=== PATIENT | male | born 1985 | race Caucasian/White ===

== ENCOUNTER 2019-07-16 23:04 | Emergency (ER) | payer OTHER, MEDICAID, SELFPAY ==
--- NOTE | ~2019-07-16 | CT_ITS ---
EXAMINATION: CT abdomen pelvis w con DATE: 07/17/2019 00:36 INDICATION: Abdominal pain and vomiting. COVID-19 TECHNIQUE: Computed tomography (CT) of the abdomen and pelvis was performed with 100 mL Omnipaque-350 intravenous contrast. Automated exposure control and iterative reconstruction technique were employe d. The dose-length product was 1546.48 mGy-cm. COMPARISON: None FINDINGS: Respiratory motion in the lung bases. Mild patchy groundglass opacities in the right middle lobe. Hea rt size is normal. No pericardial or pleural effusion. Liver, gallbladder, spleen, pancreas, bilatera l adrenal glands and kidneys are normal. Bowels including the appendix are normal. Bladder is normal. Small fat-containing right inguinal hernia. There is diffuse muscular atrophy consistent with provid ed history of muscular dystrophy. No free intraperitoneal gas or fluid. No pathologically enlarged ab dominal or pelvic lymphadenopathy. Mild scattered degenerative skeletal changes. IMPRESSION: 1. Mild patchy groundglass opacities in the right middle lobe consistent with pneumonia. 2. No acute intra-abdominal/pelvic process. Reviewed, dictated and finalized at location A. IMPRESSION: 1. Mild patchy groundglass opacities in the right middle lobe consistent with p neumonia. 2. No acute intra-abdominal/pelvic process.
[2019-07-16 23:00] VITALS: BP 134/84; PULSE 88; RESP 18; TEMP 36.8; O2SAT 96
--- NOTE | 2019-07-16 23:04 | ED.ABDPAIN ---
HPI - Abdominal Pain General Chief Complaint: Abdominal Pain Stated Complaint: covid +/abd pain Time Seen by Provider: 07/16/19 23:04 Source: patient, family and EMS Mode of arrival: EMS Limitations: physical limitation (Muscular dystrophy) History of Present Illness HPI narrative: Patient is a 34-year-old male with a history of muscular dystrophy and a recent positive COVID test who presents for evaluation of abdominal pain. She reports aching abdominal pain over the center of his abdomen over the last 48 hours. Patient had one episode of foamy emesis yesterday, no emesis today was able to tolerate oral intake. No fever, chills, cough or shortness of breath. No known COVID exposures, patient lives with his mom and sister, both of whom have had negative test. Patient has had some loose stools. No fever. No history of abdominal surgeries. No distention. Patient also reports mild headache. No visual changes, thunderclap sensation or numbness or weakness. Patient has been taking Tylenol with minimal improvement in his symptoms. Related Data Allergies Allergy/AdvReac Type Severity Reaction Status Date / Time No Known Allergies Allergy Unknown Verified 07/16/19 23:22 Review of Systems Review of Systems: Narrative: CONSTITUTIONAL: Denies fever, chills, or sweats. ENT: Denies rhinorrhea, congestion, sore throat, or otalgia. CARDIOVASCULAR: Denies chest pain RESPIRATORY: Denies cough or dyspnea. GASTROINTESTINAL: Reports abdominal pain, vomiting yesterday, loose stools today GENITOURINARY: Denies dysuria or hematuria. SKIN: Denies rash or itching. MUSCULOSKELETAL: Denies back pain, joint pain, or myalgia. NEUROLOGIC: Reports mild headache, denies numbness or weakness [facility] Past Medical History Medical History (Updated 07/17/19 @ 01:25 by Adrianne Eagle MD) Acid reflux Developmental delay, moderate Hypertension Multiple sclerosis Muscular dystrophy Seizure disorder Surgical History Surgical History (Updated 07/16/19 @ 23:17 by Adrianne Eagle MD) H/O arthroscopy of left knee Social History Social History Smoking status: Never smoker Alcohol intake: never Gender identity (if verbalized by the patient): Male Exam Narrative: Exam Narrative: GENERAL: Awake, alert, conversant, mild developmental delay HEAD: Normocephalic, atraumatic. EYES: PERRLA and EOMI. ENT: Nares clear, no rhinorrhea or epistaxis. Mucous membranes moist. NECK: Supple. CHEST: No respiratory distress, breathing even and non labored HEART: Regular rate, sinus rhythm ABDOMEN:Non distended, mild periumbilical tenderness on exam, no rebound, no rigidity or guarding EXTREMITIES: Atrophy of bilateral lower extremities, braces present on these. No edema. SKIN: Warm, dry, no rash. NEURO:No focal deficits. Alert and oriented x3 Course Vital Signs Vital signs: Vital Signs Temperature 36.8 C 07/16/19 23:00 Pulse Rate 88 07/16/19 23:00 Respiratory Rate 18 07/16/19 23:00 Blood Pressure 134/84 07/16/19 23:00 Pulse Oximetry 96 07/16/19 23:00 Temperature 36.8 C 07/16/19 23:00 Pulse Rate 95 07/17/19 02:39 Respiratory Rate 22 H 07/17/19 02:39 Blood Pressure 124/87 07/17/19 02:39 Pulse Oximetry 100 07/17/19 02:39 MDM - Abdominal Pain MDM Narrative Medical decision making narrative: Patient presented to the emergency department for evaluation of abdominal pain in the setting of known COVID infection. The time of initial assessment ABCs are intact and vital signs are stable. Physical exam is notable for mild abdominal tenderness without peritoneal signs have access obtained labs are drawn. Patient was given IV fluids, antiemetic and pain medication. Laboratory results are reassuring. No severe leukocytosis or lymphopenia. No electrolyte abnormalities. CT scan shows no evidence of obstruction, diverticulitis, no severe COVID type features on chest x-ray.
[2019-07-16] MEDS: SODIUM CHLORIDE 0.9% IV 1,000 ML 999 ML IV CONT (23:40)
[2019-07-16] MEDS: ONDANSETRON INJ 4 MG/2 ML VIAL IV PUSH (23:40)
[2019-07-16] MEDS: FAMOTIDINE 20 MG/2 ML VIAL IV PUSH (23:42)
[2019-07-16] MEDS: DICYCLOMINE HCL INJ 20 MG/2 ML VIAL IM (23:45)
[2019-07-16 23:50] LABS: Basophils Percent Auto 0.2 % (0.2-1.2); Eosinophils Percent Auto 0.3 % (0-4.4); Hematocrit 43.8 % (42.0-52.0); Hemoglobin 14.9 g/dL (14.0-18.0); Immature Granulocyte Absolute 0.02 K/mm3 (0.00-0.031); Immature Granulocyte Percent A 0.3 % (0-0.5); Lymphocytes Absolute Auto 2.08 K/mm3 (0.9-3.2); Lymphocytes Percent Auto 34.2 % (18.3-44.2); Mean Corpuscular Hemoglobin 29.9 pg (26-34); Mean Platelet Volume 10.2 fl (7.4-10.4); Monocytes Absolute Auto 0.4 K/mm3 (0.1-0.6); Monocytes Percent Auto 7.2 % (2.6-8.5); Neutrophils Absolute Auto 3.5 K/mm3 (1.3-6.7); Neutrophils Percent Auto 57.8 % (45.5-73.1); Platelet Count Result 162 k/mm3 (150-375); Red Blood Count 4.98 M/mm3 (4.6-6.20); Red Cell Distribution Width 12.3 % (11.5-14.5); White Blood Count 6.1 K/mm3 (4.5-10.0)
[2019-07-17 00:03] LABS: Alanine Aminotransferase 43 U/L (4-50); Albumin Level 4.2 g/dL (3.5-5.1); Alkaline Phosphatase 92 U/L (38-126); Aspartate Amino Transferase 37 U/L (17-59); Bilirubin,Total 0.1 mg/dL (0.2-1.3); Blood Urea Nitrogen 12 mg/dL (9-20); Calcium 8.6 mg/dL (8.4-10.2); Carbon Dioxide 23 mmol/L (22-30); Chloride 108 mmol/L (98-107); Estimated CRCL calculation 205 ml/min; Estimated Glomerular Filt Rate > 60; Glucose 100 mg/dL (75-110); Lipase 51 U/L (23-300); Potassium 3.9 mmol/L (3.4-5.0); Sodium 139 mmol/L (137-145)
[2019-07-17 01:00] VITALS: BP 120/65; PULSE 91
[2019-07-17] MEDS: FAMOTIDINE 20 MG/2 ML VIAL IV PUSH (01:03)
[2019-07-17] MEDS: methylPREDNISolone SOD SUCC 125 MG VIAL IV PUSH (01:04)
[2019-07-17] MEDS: EPINEPHrine HCL INJ 1 MG/ML AMPUL 0.3 MG IM (01:05)
[2019-07-17 01:30] VITALS: BP 116/77; PULSE 98; RESP 22; O2SAT 94
[2019-07-17 01:48] LABS: Add Urine Microscopic? NO; Appearance Urine Clear (Clear); Bacteria Urine Trace /hpf; Bilirubin Urine Negative (Negative); Blood Urine Negative (Negative); Color Urine Colorless (Yellow); Glucose Urine UA Negative (Negative); Ketones Urine Negative (Negative); Leukocyte Esterase Ur Negative LEU/UL (Negative); Nitrate Urine Negative (Negative); Protein Urine Negative (Negative); Squamous Epithelial Cell Urine Rare /hpf (Few); Urobilinogen Urine Negative mg/dL (<2.0)
[2019-07-17 01:49] LABS: Specific Grav Ur 1.045 (1.001-1.035)
[2019-07-17 01:50] VITALS: BP 107/69; PULSE 98; RESP 16; O2SAT 95
[2019-07-17 02:20] VITALS: BP 100/66; PULSE 94; RESP 22
[2019-07-17] MEDS: SODIUM CHLORIDE 0.9% IV 1,000 ML 999 ML IV CONT (02:38)
[2019-07-17 02:39] VITALS: BP 124/87; PULSE 95; RESP 22; O2SAT 100
== END 2019-07-17 02:55 | disposition home or self-care (01) ==
PROVIDERS: Emergency Provider Emergency Medicine; PCP Family Medicine Adolescent Medicine
DX: R10.84 Generalized abdominal pain (principal); U07.1 COVID-19; G35 Multiple sclerosis; I10 Essential (primary) hypertension; G71.00 Muscular dystrophy, unspecified; G40.909 Epilepsy, unspecified, not intractable, without status epilepticus
CPT/HCPCS: 36415; 74177; 80053; 81003; 83690; 85025; 96361; 96372; 96374; 96375; 96376; 99284; J0131; J0171; J0500; J1200; J2405; J2930; J7030; Q9967

== ENCOUNTER → 2020-11-10 03:01 | Outpatient (CLI) | payer OTHER, MEDICAID, SELFPAY ==
[2020-11-10 19:14] LABS: SARS-CoV-2 RNA PCR Positive
== END ==
PROVIDERS: PCP Family Medicine Adolescent Medicine; Visit Provider Family Medicine Adolescent Medicine
DX: U07.1 COVID-19 (principal)
CPT/HCPCS: C9803; U0003; U0005

== ENCOUNTER 2020-12-30 00:12 | Emergency (ER) | payer OTHER, MEDICAID, SELFPAY ==
--- NOTE | ~2020-12-30 | CT_ITS ---
EXAMINATION: CT abdomen pelvis wo con DATE: 12/30/2020 01:25 INDICATION: Right lower quadrant abdominal pain. TECHNIQUE: Computed tomography (CT) of the abdomen and pelvis was performed without intravenous contr ast. Automated exposure control and iterative reconstruction technique were employed. The dose-length product was 1490.59 mGy-cm. COMPARISON: CT abdomen and pelvis 07/17/2019 FINDINGS: The visualized portions of the lung bases demonstrate minimal atelectasis. No pleural effus ion. Cardiomegaly is noted. No pericardial effusion. There is diffuse hepatic steatosis. The gallblad kadie is normal. The spleen, pancreas, adrenal glands, and kidneys are normal. There is no urolithiasis . The prostate is mildly enlarged. There are bilateral inguinal hernias containing fat. There are no dilated loops of bowel. The appendix is not visualized. There are no pathologically enlarged lymph no helen. There is no free intraperitoneal fluid. There is fatty atrophy of much of the musculature. There is mild thoracolumbar spondylosis. IMPRESSION: 1. Right inguinal hernia containing fat. 2. Diffuse hepatic steatosis. Reviewed, dictated and finalized at location B. SERVICER
[2020-12-30 00:19] VITALS: BP 131/88; PULSE 111; RESP 28; TEMP 36.9; O2SAT 96
--- NOTE | 2020-12-30 01:00 | ED.ABDPAIN ---
HPI - Abdominal Pain General Chief Complaint: Abdominal Pain Stated Complaint: abd pain rt of belly button Time Seen by Provider: 12/30/20 00:52 Source: patient and family Mode of arrival: ambulatory Limitations: no limitations History of Present Illness HPI narrative: The patient is a 35 yo male with a history of muscular dystrophy, seizure disorder, presenting for evaluation of abdominal pain. Pain is located in the right lower quadrant and middle abdomen. Pain started this evening after work. Pain is aching and throbbing in nature. No radiation to the back or flank. He denies penile or testicular pain. No swelling. No penile discharge. Patient denies fever, chills, nausea or vomiting. No urinary symptoms. Denies diarrhea or constipation. Pt without history of abdominal surgeries. Pt does take tegretol for seizures, has been compliant with that, no breakthrough seizures in 10 years. Denies recent food indiscretions. Mom at bedside states that she has been unable to lift patient due to a recent surgery she had, so he has been doing more moving and lifting than typical for him. Related Data Home Medications Medication Instructions Recorded Confirmed carbamazepine 200 mg 200 mg PO Q12H 06/16/20 06/16/20 capsule,extended release [id number] Allergies Allergy/AdvReac Type Severity Reaction Status Date / Time iohexol AdvReac Difficulty Verified 12/30/20 00:27 [From contrast - CT, X-RAY] Breathing Review of Systems Review of Systems: CONSTITUTIONAL: Denies fever, chills, or sweats. EYES: Denies visual changes, redness, or discharge. ENT: Denies rhinorrhea, congestion, sore throat, or otalgia. CARDIOVASCULAR: Denies chest pain, palpitations, or edema. RESPIRATORY: Denies cough or dyspnea. GASTROINTESTINAL: Reports abdominal pain without nausea or vomiting, no diarrhea GENITOURINARY: Denies dysuria or hematuria. SKIN: Denies rash or itching. MUSCULOSKELETAL: Denies back pain, joint pain, or myalgia. NEUROLOGIC: Denies headache, numbness, or weakness. [facility] Past Medical History Medical History Acid reflux Developmental delay, moderate Hypertension Multiple sclerosis Muscular dystrophy Seizure disorder Surgical History Surgical History H/O arthroscopy of left knee Social History Social History Smoking status: Never smoker Alcohol intake: never Gender identity (if verbalized by the patient): Male Exam Narrative: GENERAL: Awake, alert, conversant HEAD: Normocephalic, atraumatic. EYES: PERRLA and EOMI. ENT: Nares clear, no rhinorrhea or epistaxis. Mucous membranes moist. NECK: Supple. CHEST: No respiratory distress, breathing even and non labored HEART: Tachycardic rate, sinus rhythm ABDOMEN:Non distended, tender in the RLQ, without guarding, no rebound EXTREMITIES: Normal range of motion. No edema. Braces bilateral lower extremities. SKIN: Warm, dry, no rash. NEURO:No focal deficits. Alert and oriented x3 Course Vital Signs Vital signs: Vital Signs Temperature 36.9 C 12/30/20 00:19 Pulse Rate 111 H 12/30/20 00:19 Respiratory Rate 28 H 12/30/20 00:19 Blood Pressure 131/88 12/30/20 00:19 Pulse Oximetry 96 12/30/20 00:19 Temperature 36.9 C 12/30/20 00:19 Pulse Rate 93 12/30/20 02:39 Respiratory Rate 17 12/30/20 02:39 Blood Pressure 104/62 12/30/20 02:39 Pulse Oximetry 97 12/30/20 02:39 MDM - Abdominal Pain MDM Narrative Medical decision making narrative: Patient presenting for evaluation of abdominal pain. At the time of assessment, ABCs are intact and patient is mildly tachycardic, mildly tachypneic. He is afebrile. Patient does have tenderness in the right lower quadrant, right middle quadrant. Nonrigid, no rebound. Lab and imaging evaluations are reassuring. Pt without leukocytosis, althoug
[2020-12-30] MEDS: MORPHINE SULFATE (*CRX) 4 MG/ML INJ IV PUSH (01:56)
[2020-12-30] MEDS: SODIUM CHLORIDE 0.9% IV 1,000 ML 999 ML IV CONT (01:56)
[2020-12-30] MEDS: ONDANSETRON INJ 4 MG/2 ML VIAL IV PUSH (01:56)
[2020-12-30 02:06] LABS: Basophils Percent Auto 0.1 % (0.2-1.2); Hematocrit 45.6 % (42.0-52.0); Hemoglobin 15.6 g/dL (14.0-18.0); Immature Granulocyte Absolute 0.03 K/mm3 (0.00-0.031); Immature Granulocyte Percent A 0.4 % (0-0.5); Lymphocytes Absolute Auto 1.03 K/mm3 (0.9-3.2); Lymphocytes Percent Auto 13.8 % (18.3-44.2); Mean Corpuscular HGB Conc 34.2 g/dl (32-36); Mean Corpuscular Hemoglobin 30.1 pg (26-34); Mean Platelet Volume 9.6 fl (7.4-10.4); Monocytes Absolute Auto 0.5 K/mm3 (0.1-0.6); Monocytes Percent Auto 6.9 % (2.6-8.5); Neutrophils Absolute Auto 5.9 K/mm3 (1.3-6.7); Neutrophils Percent Auto 78.8 % (45.5-73.1); Platelet Count Result 180 k/mm3 (150-375); Red Blood Count 5.18 M/mm3 (4.6-6.20); Red Cell Distribution Width 11.9 % (11.5-14.5); White Blood Count 7.4 K/mm3 (4.5-10.0)
[2020-12-30 02:16] LABS: Alanine Aminotransferase 48 U/L (4-50); Albumin Level 4.4 g/dL (3.5-5.1); Alkaline Phosphatase 93 U/L (38-126); Anion Gap 9 mmol/L (8-16); Aspartate Amino Transferase 41 U/L (17-59); Bilirubin,Total 0.6 mg/dL (0.2-1.3); Blood Urea Nitrogen 9 mg/dL (9-20); Calcium 9.4 mg/dL (8.4-10.2); Carbon Dioxide 28 mmol/L (22-30); Chloride 103 mmol/L (98-107); Estimated CRCL calculation 257 ml/min; Estimated Glomerular Filt Rate > 60; Glucose 114 mg/dL (65-110); Lipase 31 U/L (23-300); Potassium 3.8 mmol/L (3.4-5.0); Sodium 140 mmol/L (137-145)
[2020-12-30 02:39] VITALS: BP 104/62; PULSE 93; RESP 17; O2SAT 97
--- NOTE | 2020-12-30 02:45 | PC.NURSE ---
pt states he is unable to urinate and is refusing catheter at this time.
[2020-12-30 03:39] LABS: Add Urine Microscopic? NO; Appearance Urine Clear (Clear); Bilirubin Urine Negative (Negative); Blood Urine Negative (Negative); Color Urine Yellow (Yellow); Glucose Urine UA Negative (Negative); Ketones Urine Negative (Negative); Leukocyte Esterase Ur Negative LEU/UL (Negative); Nitrate Urine Negative (Negative); Protein Urine Negative (Negative); Specific Grav Ur 1.018 (1.001-1.035); Urobilinogen Urine Negative mg/dL (<2.0)
[2020-12-30 04:12] VITALS: BP 112/74; PULSE 94; RESP 18; O2SAT 96
== END 2020-12-30 04:17 | disposition home or self-care (01) ==
PROVIDERS: Emergency Provider Emergency Medicine; PCP Family Medicine Adolescent Medicine
DX: R10.31 Right lower quadrant pain (principal); G71.00 Muscular dystrophy, unspecified; G40.909 Epilepsy, unspecified, not intractable, without status epilepticus; I10 Essential (primary) hypertension; G35 Multiple sclerosis; K21.9 Gastro-esophageal reflux disease without esophagitis
CPT/HCPCS: 36415; 74176; 80053; 81003; 83690; 85025; 96361; 96365; 96375; 99284; J0131; J2270; J2405; J7030

== ENCOUNTER → 2021-03-09 16:01 | Outpatient (CLI) | payer OTHER, MEDICAID, SELFPAY ==
--- NOTE | ~2021-03-09 | XR_ITS ---
XR knee RT 2V DATE: 03/09/2021 16:24 INDICATION: Right knee pain TECHNIQUE: Standing AP and lateral views COMPARISON: None FINDINGS: No fracture or dislocation or joint effusion. No periosteal reaction or bone destruction. J oint spaces appear preserved. No radiopaque intra-articular loose body or chondral calcinosis. IMPRESSION: No significant abnormality Reviewed, dictated and finalized at location B. CARDIOGRAPH TECHNICIAN IMPRESSION: No significant abnormality
== END ==
PROVIDERS: PCP Physician Assistant; Visit Provider Physician Assistant
DX: M25.561 Pain in right knee (principal)
CPT/HCPCS: 73560

== ENCOUNTER 2021-10-07 01:17 | Emergency (ER) | payer OTHER, MEDICAID, SELFPAY ==
[2021-10-07] VITALS (27 sets, daily range): BP systolic 107–145; BP diastolic 78–102; PULSE 71–117; RESP 14–24; TEMP 37; O2SAT 93–100
--- NOTE | ~2021-10-07 | XR_ITS ---
EXAMINATION: XR chest 2V DATE: 10/07/2021 01:53 INDICATION: Chest pain. TECHNIQUE: Frontal and lateral views of the chest were obtained. COMPARISON: Chest 2 views 11/20/2018 FINDINGS: There is mild elevation of right hemidiaphragm without change. No pneumonia, pleural effusi on, or pneumothorax. The heart size is normal. IMPRESSION: 1. No acute cardiopulmonary disease. Reviewed, dictated and finalized at location A.
--- NOTE | 2021-10-07 01:17 | ECG_ITS ---
Measurements Intervals [place] Rate: 84 P: 118 WI: 213 QRS: 233 QRSD: 176 T: 98 QT: 400 QTc: 474 Interpretive Statements SINUS RHYTHM WITH FIRST DEGREE AV BLOCK ARM LEADS REVERSED LEFT BUNDLE BRANCH BLOCK BASELINE ARTIFACT-I, II, AVR, AVL ABNORMAL ECG COMPARED TO ECG 11/20/2018 18:09:21 NO SIGNIFICANT CHANGES Electronically Signed On 10-07-2021 8:00:29 CDT by Rashad Li D.O.
[2021-10-07 01:30] LABS: Basophils Percent Auto 0.4 % (0.2-1.2); Eosinophils Percent Auto 0.4 % (0-4.4); Hematocrit 46.4 % (42.0-52.0); Hemoglobin 15.5 g/dL (14.0-18.0); Immature Granulocyte Absolute 0.02 K/mm3 (0.00-0.031); Immature Granulocyte Percent A 0.3 % (0-0.5); Lymphocytes Absolute Auto 2.35 K/mm3 (0.9-3.2); Lymphocytes Percent Auto 30.9 % (18.3-44.2); Mean Corpuscular HGB Conc 33.4 g/dl (32-36); Mean Corpuscular Hemoglobin 29.3 pg (26-34); Mean Corpuscular Volume 87.7 fl (80-100); Monocytes Absolute Auto 0.5 K/mm3 (0.1-0.6); Monocytes Percent Auto 6.4 % (2.6-8.5); Neutrophils Absolute Auto 4.7 K/mm3 (1.3-6.7); Neutrophils Percent Auto 61.6 % (45.5-73.1); Platelet Count Result 180 k/mm3 (150-375); Red Blood Count 5.29 M/mm3 (4.6-6.20); Red Cell Distribution Width 12.1 % (11.5-14.5); White Blood Count 7.6 K/mm3 (4.5-10.0)
[2021-10-07 01:42] LABS: Alanine Aminotransferase 29 U/L (6-50); Albumin Level 4.4 g/dL (3.5-5.1); Alkaline Phosphatase 93 U/L (38-126); Anion Gap 6 mmol/L (8-16); Aspartate Amino Transferase 31 U/L (17-59); Bilirubin,Total 0.4 mg/dL (0.2-1.3); Blood Urea Nitrogen 18 mg/dL (9-20); Calcium 8.8 mg/dL (8.4-10.2); Carbon Dioxide 25 mmol/L (22-30); Chloride 102 mmol/L (98-107); Estimated CRCL calculation 266 ml/min; Estimated Glomerular Filt Rate > 60; Glucose 105 mg/dL (65-110); INR 1.1; Lipase 43 U/L (23-300); Prothrombin Time 13.6 Seconds (11.1-14.7); Sodium 133 mmol/L (137-145)
[2021-10-07 01:43] LABS: Partial Thromboplastin Time 31.8 SECONDS (22.3-36.8)
[2021-10-07 01:52] LABS: D Dimer 0.35 ug/mL (<0.48)
[2021-10-07 01:54] LABS: Troponin I 0.027 ng/mL (0.000-0.034)
[2021-10-07] MEDS: MORPHINE SULFATE (*CRX) 4 MG/ML INJ IV PUSH (01:57)
[2021-10-07] MEDS: SODIUM CHLORIDE 0.9% IV 100 ML 500 ML (02:02)
--- NOTE | 2021-10-07 02:30 | ED.CHESTPAIN ---
HPI - Chest Pain General Chief Complaint: Chest Pain Stated Complaint: Code Stemi Time Seen by Provider: 10/07/21 01:17 History of Present Illness HPI narrative: Patient is a 36-year-old male with history of developmental delay muscular dystrophy who presents ER with chest pain. Occurred while getting in bed. Sharp and left-sided. Nonradiating. No difficulty breathing. Denies nausea or vomiting or shortness of breath. Has not had complaints like this before. EMS reports to where they go out for lift assist. Patient did have a fall in the last week according to family but no known injury. Patient has a known left bundle branch block but no history of heart disease according to the mother. Related Data Home Medications Medication Instructions Recorded Confirmed metoprolol succinate 25 mg 25 mg PO DAILY 03/08/21 09/24/21 tablet,extended release 24 hr naproxen 500 mg tablet 500 mg PO BID 03/08/21 09/24/21 spironolactone 25 mg tablet 25 mg PO DAILY 03/08/21 09/24/21 Allergies Allergy/AdvReac Type Severity Reaction Status Date / Time iohexol AdvReac Difficulty Verified 10/07/21 01:29 [From contrast - CT, X-RAY] Breathing Review of Systems Review of Systems: All systems reviewed & are unremarkable except as noted in HPI and below Constitutional: Constitutional: Denies chills and Denies fever(s) ENT: Denies sore throat Cardiovascular: Cardiovascular: Reports chest pain, Denies rapid heart rate and Denies radiating jaw, neck or arm pain Respiratory: Respiratory: Denies cough, Denies dyspnea and Denies wheezing Gastrointestinal: Gastrointestinal: Denies abdominal pain, Denies nausea and Denies vomiting Musculoskeletal: Musculoskeletal: Denies back pain and Denies arthralgias [facility] Past Medical History Medical History Acid reflux Cardiomyopathy as manifestation of underlying disease secondary to muscular dystrophy Chronic headaches Congenital muscular dystrophy Developmental delay, moderate Epilepsy Frequent falls GERD (gastroesophageal reflux disease) Hepatic steatosis 07/2015 Hypertension Left bundle branch block Mild intellectual disability Multiple sclerosis Muscular dystrophy Obesity (BMI 30-39.9) Seizure disorder Surgical History Surgical History H/O arthroscopy of left knee Social History Social History (Updated 09/24/21 @ 09:47 by Gianna Fernández MA) Smoking status: Never smoker Second hand tobacco smoke exposure: No Alcohol intake: never Substance use: never Substance use type: does not use Gender identity (if verbalized by the patient): Male Sexual Orientation (if Verbalized by the Patient): Straight or Heterosexual Spiritual care concerns: No Agree to blood products: Yes Exam Narrative: GENERAL: Well-appearing, well-nourished, and in no acute distress. HEAD: Normocephalic, atraumatic. ENT: Mucous membranes moist. CHEST: Clear to auscultation. No respiratory distress. HEART: Regular rate and rhythm. Normal peripheral pulses. ABDOMEN: Soft, nontender, nondistended. EXTREMITIES: RLE lateral lower extremities in braces due to muscular dystrophy. 1+ edema SKIN: Warm, dry, no rash. NEURO: Alert and oriented x3. PSYCH: Normal mood and affect. Course Course Emergency Course: Patient resting comfortably. No pain in the chest while in the ER. Patient does not wish to stay in the hospital. He does have intellectual delay. His mom is present and is supportive of this. A second troponin was drawn and unchanged. Given the fact that he has 2 negative troponins, he has no previous history of heart disease, he has a heart score of 2, and he has a mother who is supportive of him going home patient be discharged. Vital Signs Vital signs: Vital Signs Temperature 98.6 F 10/07/21 01:20 Pulse Rate 96 10/07/21 01:20 Respiratory Rate 21 H 09
[2021-10-07 04:51] LABS: Troponin I 0.027 ng/mL (0.000-0.034)
== END 2021-10-07 05:35 | disposition home or self-care (01) ==
PROVIDERS: Emergency Provider Emergency Medicine; PCP Family Medicine Adolescent Medicine
DX: R07.9 Chest pain, unspecified (principal); G71.09 Other specified muscular dystrophies; I43 Cardiomyopathy in diseases classified elsewhere; G40.909 Epilepsy, unspecified, not intractable, without status epilepticus; I10 Essential (primary) hypertension; F81.9 Developmental disorder of scholastic skills, unspecified; G35 Multiple sclerosis; K21.9 Gastro-esophageal reflux disease without esophagitis; I44.7 Left bundle-branch block, unspecified; E66.9 Obesity, unspecified; Z68.41 Body mass index [BMI] 40.0-44.9, adult; I44.0 Atrioventricular block, first degree
CPT/HCPCS: 36415; 71046; 80053; 83690; 84484; 85025; 85380; 85610; 85730; 93005; 96361; 96374; 99284; J2270

== ENCOUNTER 2024-02-12 14:54 | Emergency (ER) | payer MEDICARE, MEDICAID, SELFPAY ==
--- NOTE | ~2024-02-12 | XR_ITS ---
EXAMINATION: XR chest 2V DATE: 02/12/2024 16:45 INDICATION: Weakness. TECHNIQUE: Frontal and lateral views of the chest were obtained. COMPARISON: Chest 2 views 10/07/2021 FINDINGS: There is no pneumonia, pleural effusion, or pneumothorax. The heart size is normal. There i s a left chest pacer with leads in right atrium, right ventricle, and coronary sinus. IMPRESSION: 1. No acute cardiopulmonary disease. Reviewed, dictated and finalized at location [facility]
[2024-02-12 15:02] VITALS: BP 142/81; PULSE 94; RESP 18; TEMP 36.5; O2SAT 98
[2024-02-12 15:13] LABS: Glucose Point of Care 115 mg/dl (65-105)
--- NOTE | 2024-02-12 15:58 | ECG_ITS ---
Test Date: 2024-02-12 16:14:12 Measurements Intervals [place] Rate: 92 P: 31 [place]: 181 QRS: -62 QRSD: 153 T: 76 QT: 409 QTc: 508 Interpretive Statements ELECTRONIC VENTRICULAR PACEMAKER No previous ECG available for comparison Electronically Signed On 02-14-2024 17:04:43 THERAPEUTIC RIDING INSTRUCTOR by Javier Ambriz M.D.
--- NOTE | 2024-02-12 15:59 | ED.WEAKNESS ---
HPI - Weakness General Chief complaint: Weakness <Manisha Cortez PA-C - Last Filed: 02/13/24 11:59> Stated complaint: WEAKNESS <Manisha Cortez PA-C - Last Filed: 02/13/24 11:59> Time Seen by Provider: 02/12/24 15:59 <Manisha Cortez PA-C - Last Filed: 02/13/24 11:59> Focused HPI: This is a 38-year-old male that presents to the emergency department for generalized weakness. Reports he was trying to use the restroom and felt like his legs were going to give out on him. He has history of muscular dystrophy. No other localizing symptoms GENERAL: Well-appearing, well-nourished, and in no acute distress. HEAD: Normocephalic, atraumatic. CHEST: Clear to auscultation. ?No respiratory distress. HEART: Regular rate and rhythm.? NEURO: ?Alert and oriented x3. Patient screened in triage and initial orders placed.? ?Additional care and disposition to be based upon?diagnostic testing and treatment. <Manisha Cortez PA-C - Last Filed: 02/13/24 11:59> History of Present Illness HPI Narrative: Patient 38-year-old gentleman who presents emergency department with chief complaint of generalized weakness. Patient reports that he feels as though his legs are going to give out on him the patient has history of muscular dystrophy reports that he lives with his mother who has had worsening health problems and the family is ultimately looking at getting at physical therapy and possible placement. The patient denies fever denies chest pain denies shortness of breath <Eb Martin MD - Last Filed: 02/12/24 22:06> Related Data Home medications: Home Medications ?Medication ?Instructions ?Recorded ?Confirmed ?Last Taken ?Type metoprolol succinate 25 mg 25 mg PO DAILY 03/08/21 06/16/22 Unknown History tablet,extended release 24 hr naproxen 500 mg tablet 500 mg PO BID 03/08/21 06/16/22 Unknown History spironolactone 25 mg tablet 25 mg PO DAILY 03/08/21 06/16/22 Unknown History <Manisha Cortez PA-C - Last Filed: 02/13/24 11:59> Allergies/Adverse reactions: Allergies Allergy/AdvReac Type Severity Reaction Status Date / Time iohexol (From contrast - CT, AdvReac Difficulty Verified 06/22/23 13:34 X-RAY) Breathing <Manisha Cortez PA-C - Last Filed: 02/13/24 11:59> Review of Systems Review of Systems: A 10 system review of systems was completed on the patient and is negative except for what is stated in the HPI. Nursing and ancillary documentation was reviewed. <Eb Maritn MD - Last Filed: 02/12/24 22:06> [facility] Past Medical History Medical History: Medical History Obesity (BMI 30-39.9) Frequent falls Cardiomyopathy as manifestation of underlying disease secondary to muscular dystrophy GERD (gastroesophageal reflux disease) Left bundle branch block Chronic headaches Epilepsy Mild intellectual disability Hepatic steatosis 07/2015 Congenital muscular dystrophy Multiple sclerosis Acid reflux Hypertension Developmental delay, moderate Seizure disorder Muscular dystrophy <Manisha Cortez PA-C - Last Filed: 02/13/24 11:59> Surgical History Surgical History: Surgical History H/O arthroscopy of left knee <Manisha Cortez PA-C - Last Filed: 02/13/24 11:59> Social History Social History: Social History Smoking status: Never smoker Second hand tobacco smoke exposure: No Alcohol intake: never Substance use: never Substance use type: does not use Lack of Transportation: No Lack of Food: Never True Current Housing: Decline to Answer Concerned About Future Housing: No Difficulty Paying Gas/Electric Bills: No Difficulty Paying for Meds: No Currently Unemployed: No Education: High School Diploma/GED Difficulty w/ Childcare or Family Care: No Living arrangements: with family Occupation/Education: unemployed Gender identity (if verbalized by the patient): Male Sexual Orientation (if Verbalized by the Patient): Straight or Heterosexual Spiritual care concerns: No Agree to blood products: Yes <Manisha Cortez PA-C - Last Filed: 02/13/24 11:59> Exam Narrative: GENERAL: Well-appearing, well-nourished, and in no acute distress. HEAD: Normocephalic, atraumatic. EYES: PERRLA and EOMI. ENT: Nares clear, no rhinorrhea or epistaxis. Mucous membranes moist. NECK: Supple. CHEST: Clear to auscultation. No respiratory distress. HEART: Regular rate and rhythm. No murmur heard. Normal peripheral pulses. ABDOMEN: Soft, nontender, nondistended, normal active bowel sounds. EXTREMITIES: Normal range of motion. No edema. SKIN: Warm, dry, no rash. NEURO: No focal deficits. Alert and oriented x3. PSYCH: Normal mood and affect. <Eb Martin MD - Last Filed: 02/12/24 22:06> Course Vital Signs Vital signs: Vital Signs Temperature 97.7 F 02/12/24 15:02 Pulse Rate 94 02/12/24 15:02 Respiratory Rate 18 02/12/24 15:02 Blood Pressure 142/81 H 02/12/24 15:02 Pulse Oximetry 98 02/12/24 15:02 Oxygen Delivery Room Air 02/12/24 15:02 Temperature 96.8 F L 02/12/24 19:52 Pulse Rate 103 H 02/12/24 22:37 Respiratory Rate 18 02/12/24 22:37 Blood Pressure 123/86 02/12/24 22:37 Pulse Oximetry 99 02/12/24 22:37 Oxygen Delivery Room Air 02/12/24 15:02 <Manisha Cortez PA-C - Last Filed: 02/13/24 11:59> Vital Signs Temperature 97.7 F 02/12/24 15:02 Pulse Rate 94 02/12/24 15:02 Respiratory Rate 18 02/12/24 15:02 Blood Pressure 142/81 H 02/12/24 15:02 Pulse Oximetry 98 02/12/24 15:02 Oxygen Delivery Room Air 02/12/24 15:02 Temperature 96.8 F L 02/12/24 19:52 Pulse Rate 103 H 02/12/24 22:37 Respiratory Rate 18 02/12/24 22:37 Blood Pressure 123/86 02/12/24 22:37 Pulse Oximetry 99 02/12/24 22:37 Oxygen Delivery Room Air 02/12/24 15:02 <Eb Martin MD - Last Filed: 02/12/24 22:06> MDM - Weakness MDM Narrative Medical decision making narrative: Differential diagnosis includes pneumonia, UTI, electrolyte abnormality, dehydration Laboratory studies were obtained on the patient showed a normal CBC with white count of 7.7 hemoglobin was 16.2 electrolytes showed a glucose of 98 renal function was normal with with a BUN of 14 and a creatinine is 0.27 urinalysis showed no evidence UTI no ketones specific gravity of 1.014 Chest x-ray showed no focal infiltrate EKG showed no acute ischemic changes It was discussed with the patient and the patient's family of admission for case management evaluation and possible placement the family after extensive discussion decided that they would attempt to 1st expedited leave follow-up with the patient's primary care provider and look at doing outpatient physical therapy or possible placement <Eb Martin MD - Last Filed: 02/12/24 22:06> Lab Data Result diagrams: 02/12/24 16:21 02/12/24 16:21 <Manisha Cortez PA-C - Last Filed: 02/13/24 11:59> Labs: Lab Results 02/12/24 02/12/24 02/12/24 Range/Units 15:11 16:21 17:57 WBC 7.7 (4.5-10.0) K/mm3 RBC 5.57 (4.6-6.20) M/mm3 Hgb 16.2 (14.0-18.0) g/dL Hct 47.0 (42.0-52.0) % MCV 84.4 (80-100) fl MCH 29.1 (26-34) pg MCHC 34.5 (32-36) g/dl RDW 12.4 (11.5-14.5) % Plt Count 170 (150-375) k/mm3 MPV 9.8 (7.4-10.4) fl Immature Gran % (Auto) 0.4 (0-0.5) % Neut % (Auto) 72.7 (45.5-73.1) % Lymph % (Auto) 19.1 (18.3-44.2) % [place] % (Auto) 7.2 (2.6-8.5) % Eos % (Auto) 0.1 (0-4.4) % Baso % (Auto) 0.5 (0.2-1.2) % Lymph # (Auto) 1.47 (0.9-3.2) K/mm3 [place] # (Auto) 0.6 (0.1-0.6) K/mm3 Eos # (Auto) 0.0 (0-0.3) K/mm3 Baso # (Auto) 0.0 (0.0-0.1) K/mm3 Abs Immat Gran (auto) 0.03 (0.00-0.031) K/mm3 Absolute Neuts (auto) 5.6 (1.3-6.7) K/mm3 Absolute Nucleated RBC 0.000 (0.0-0.012) K/mm3 Nucleated RBC % 0.0 (0.0-0.2) % Sodium 140 (137-145) mmol/L Potassium 3.6 (3.4-5.0) mmol/L Chloride 107 (98-107) mmol/L Carbon Dioxide 24 (22-30) mmol/L Anion Gap 9 (4-12) mmol/L BUN 14 (9-20) mg/dL Creatinine 0.27 L (0.7-1.3) mg/dL Estim Creat Clear Calc 366 ml/min Estimated GFR > 60 (59 - ) Glucose 98 (65-110) mg/dL POC Capillary Glucose 115 H (65-105) mg/dl Calcium 9.2 (8.4-10.2) mg/dL Magnesium 2.0 (1.6-2.3) mg/dL Total Bilirubin 0.7 (0.2-1.3) mg/dL AST 47 (17-59) U/L ALT 46 (6-50) U/L Alkaline Phosphatase 103 (38-126) U/L Total Protein 8.0 (6.3-8.2) g/dL Albumin 4.5 (3.5-5.1) g/dL Urine Color Yellow (Yellow) Urine Appearance Clear (Clear) Urine pH 6.0 (5.0-9.0) Ur Specific [place] 1.014 (1.001-1.035) Urine Protein Negative (Negative) mg/dL Urine Glucose (UA) Negative (Negative) mg/dL Urine Ketones Negative (Negative) mg/dL Ur Blood (Man) Negative (Negative) Urine Nitrate Negative (Negative) Urine Bilirubin Negative (Negative) Urine Urobilinogen 0.2 (<2.0) mg/dL Leukocyte Esterase Rfl Negative (Negative) ALLEN/UL 02/12/24 Range/Units 19:53 WBC (4.5-10.0) K/mm3 RBC (4.6-6.20) M/mm3 Hgb (14.0-18.0) g/dL Hct (42.0-52.0) % MCV (80-100) fl MCH (26-34) pg MCHC (32-36) g/dl RDW (11.5-14.5) % Plt Count (150-375) k/mm3 MPV (7.4-10.4) fl Immature Gran % (Auto) (0-0.5) % Neut % (Auto) (45.5-73.1) % Lymph % (Auto) (18.3-44.2) % [place] % (Auto) (2.6-8.5) % Eos % (Auto) (0-4.4) % Baso % (Auto) (0.2-1.2) % Lymph # (Auto) (0.9-3.2) K/mm3 [place] # (Auto) (0.1-0.6) K/mm3 Eos # (Auto) (0-0.3) K/mm3 Baso # (Auto) (0.0-0.1) K/mm3 Abs Immat Gran (auto) (0.00-0.031) K/mm3 Absolute Neuts (auto) (1.3-6.7) K/mm3 Absolute Nucleated RBC (0.0-0.012) K/mm3 Nucleated RBC % (0.0-0.2) % Sodium (137-145) mmol/L Potassium (3.4-5.0) mmol/L Chloride (98-107) mmol/L Carbon Dioxide (22-30) mmol/L Anion Gap (4-12) mmol/L BUN (9-20) mg/dL Creatinine (0.7-1.3) mg/dL Estim Creat Clear Calc ml/min Estimated GFR (59 - ) Glucose (65-110) mg/dL POC Capillary Glucose 94 (65-105) mg/dl Calcium (8.4-10.2) mg/dL Magnesium (1.6-2.3) mg/dL Total Bilirubin (0.2-1.3) mg/dL AST (17-59) U/L ALT (6-50) U/L Alkaline Phosphatase (38-126) U/L Total Protein (6.3-8.2) g/dL Albumin (3.5-5.1) g/dL Urine Color (Yellow) Urine Appearance (Clear) Urine pH (5.0-9.0) Ur Specific [place] (1.001-1.035) Urine Protein (Negative) mg/dL Urine Glucose (UA) (Negative) mg/dL Urine Ketones (Negative) mg/dL Ur Blood (Man) (Negative) Urine Nitrate (Negative) Urine Bilirubin (Negative) Urine Urobilinogen (<2.0) mg/dL Leukocyte Esterase Rfl (Negative) ALLEN/UL <Manisha Cortez PA-C - Last Filed: 02/13/24 11:59> Lab Results 02/12/24 02/12/24 02/12/24 Range/Units 15:11 16:21 17:57 WBC 7.7 (4.5-10.0) K/mm3 RBC 5.57 (4.6-6.20) M/mm3 Hgb 16.2 (14.0-18.0) g/dL Hct 47.0 (42.0-52.0) % MCV 84.4 (80-100) fl MCH 29.1 (26-34) pg MCHC 34.5 (32-36) g/dl RDW 12.4 (11.5-14.5) % Plt Count 170 (150-375) k/mm3 MPV 9.8 (7.4-10.4) fl Immature Gran % (Auto) 0.4 (0-0.5) % Neut % (Auto) 72.7 (45.5-73.1) % Lymph % (Auto) 19.1 (18.3-44.2) % [place] % (Auto) 7.2 (2.6-8.5) % Eos % (Auto) 0.1 (0-4.4) % Baso % (Auto) 0.5 (0.2-1.2) % Lymph # (Auto) 1.47 (0.9-3.2) K/mm3 [place] # (Auto) 0.6 (0.1-0.6) K/mm3 Eos # (Auto) 0.0 (0-0.3) K/mm3 Baso # (Auto) 0.0 (0.0-0.1) K/mm3 Abs Immat Gran (auto) 0.03 (0.00-0.031) K/mm3 Absolute Neuts (auto) 5.6 (1.3-6.7) K/mm3 Absolute Nucleated RBC 0.000 (0.0-0.012) K/mm3 Nucleated RBC % 0.0 (0.0-0.2) % Sodium 140 (137-145) mmol/L Potassium 3.6 (3.4-5.0) mmol/L Chloride 107 (98-107) mmol/L Carbon Dioxide 24 (22-30) mmol/L Anion Gap 9 (4-12) mmol/L BUN 14 (9-20) mg/dL Creatinine 0.27 L (0.7-1.3) mg/dL Estim Creat Clear Calc 366 ml/min Estimated GFR > 60 (59 - ) Glucose 98 (65-110) mg/dL POC Capillary Glucose 115 H (65-105) mg/dl Calcium 9.2 (8.4-10.2) mg/dL Magnesium 2.0 (1.6-2.3) mg/dL Total Bilirubin 0.7 (0.2-1.3) mg/dL AST 47 (17-59) U/L ALT 46 (6-50) U/L Alkaline Phosphatase 103 (38-126) U/L Total Protein 8.0 (6.3-8.2) g/dL Albumin 4.5 (3.5-5.1) g/dL Urine Color Yellow (Yellow) Urine Appearance Clear (Clear) Urine pH 6.0 (5.0-9.0) Ur Specific [place] 1.014 (1.001-1.035) Urine Protein Negative (Negative) mg/dL Urine Glucose (UA) Negative (Negative) mg/dL Urine Ketones Negative (Negative) mg/dL Ur Blood (Man) Negative (Negative) Urine Nitrate Negative (Negative) Urine Bilirubin Negative (Negative) Urine Urobilinogen 0.2 (<2.0) mg/dL Leukocyte Esterase Rfl Negative (Negative) ALLEN/UL 02/12/24 Range/Units 19:53 WBC (4.5-10.0) K/mm3 RBC (4.6-6.20) M/mm3 Hgb (14.0-18.0) g/dL Hct (42.0-52.0) % MCV (80-100) fl MCH (26-34) pg MCHC (32-36) g/dl RDW (11.5-14.5) % Plt Count (150-375) k/mm3 MPV (7.4-10.4) fl Immature Gran % (Auto) (0-0.5) % Neut % (Auto) (45.5-73.1) % Lymph % (Auto) (18.3-44.2) % [place] % (Auto) (2.6-8.5) % Eos % (Auto) (0-4.4) % Baso % (Auto) (0.2-1.2) % Lymph # (Auto) (0.9-3.2) K/mm3 [place] # (Auto) (0.1-0.6) K/mm3 Eos # (Auto) (0-0.3) K/mm3 Baso # (Auto) (0.0-0.1) K/mm3 Abs Immat Gran (auto) (0.00-0.031) K/mm3 Absolute Neuts (auto) (1.3-6.7) K/mm3 Absolute Nucleated RBC (0.0-0.012) K/mm3 Nucleated RBC % (0.0-0.2) % Sodium (137-145) mmol/L Potassium (3.4-5.0) mmol/L Chloride (98-107) mmol/L Carbon Dioxide (22-30) mmol/L Anion Gap (4-12) mmol/L BUN (9-20) mg/dL Creatinine (0.7-1.3) mg/dL Estim Creat Clear Calc ml/min Estimated GFR (59 - ) Glucose (65-110) mg/dL POC Capillary Glucose 94 (65-105) mg/dl Calcium (8.4-10.2) mg/dL Magnesium (1.6-2.3) mg/dL Total Bilirubin (0.2-1.3) mg/dL AST (17-59) U/L ALT (6-50) U/L Alkaline Phosphatase (38-126) U/L Total Protein (6.3-8.2) g/dL Albumin (3.5-5.1) g/dL Urine Color (Yellow) Urine Appearance (Clear) Urine pH (5.0-9.0) Ur Specific [place] (1.001-1.035) Urine Protein (Negative) mg/dL Urine Glucose (UA) (Negative) mg/dL Urine Ketones (Negative) mg/dL Ur Blood (Man) (Negative) Urine Nitrate (Negative) Urine Bilirubin (Negative) Urine Urobilinogen (<2.0) mg/dL Leukocyte Esterase Rfl (Negative) ALLEN/UL <Eb Martin MD - Last Filed: 02/12/24 22:06> Imaging Data Radiologist's impression: ITS Impressions Chest X-Ray 02/12/24 16:51 IMPRESSION: 1. No acute cardiopulmonary disease. <Manisha Cortez PA-C - Last Filed: 02/13/24 11:59> Critical Care Time Critical Care Time Critical Care Time: No <Manisha Cortez PA-C - Last Filed: 02/13/24 11:59> Discharge Plan Discharge Clinical Impression: Congenital muscular dystrophy, Generalized weakness <Manisha Cortez PA-C - Last Filed: 02/13/24 11:59> Patient Disposition: Home, Self-Care <Manisha Cortez PA-C - Last Filed: 02/13/24 11:59> Condition: Stable <LELO Saeed Last Filed: 02/13/24 11:59> Instructions: Antibiotic Form, Weakness (ED) <LELO Saeed Last Filed: 02/13/24 11:59> Patient Language: Irish <LELO Saeed Last Filed: 02/13/24 11:59> Prescriptions: No Action metoprolol succinate 25 mg tablet extended release 24 hr 25 mg PO DAILY naproxen 500 mg tablet 500 mg PO BID spironolactone 25 mg tablet 25 mg PO DAILY doxycycline hyclate 100 mg capsule 100 mg PO BID Qty: 20 0RF montelukast 10 mg tablet See Rx Instructions .ROUTE .COMPLEX Qty: 90 1RF Dose Instruction: TAKE 1 TABLET BY MOUTH EVERY DAY Rx Instructions: TAKE 1 TABLET BY MOUTH EVERY DAY omeprazole 20 mg capsule,delayed release(DR/EC) See Rx Instructions .ROUTE .COMPLEX Qty: 90 3RF Dose Instruction: TAKE 1 CAPSULE BY MOUTH EVERY DAY Rx Instructions: TAKE 1 CAPSULE BY MOUTH EVERY DAY carbamazepine 200 mg tablet extended release 12 hr See Rx Instructions .ROUTE .COMPLEX Qty: 180 6RF Dose Instruction: TAKE ONE TABLET BY MOUTH EVERY 12 HOURS DIRECTED Rx Instructions: TAKE ONE TABLET BY MOUTH EVERY 12 HOURS DIRECTED lisinopril 20 mg tablet 20 mg PO DAILY Qty: 90 2RF <Manisha Cortez PA-C - Last Filed: 02/13/24 11:59> Follow-up/Referrals: Lalo Laws MD [Physician] - <Manisha Cortez PA-C - Last Filed: 02/13/24 11:59> Time of Disposition: 22:04 <Manisha Cortez PA-C - Last Filed: 02/13/24 11:59> 22:04 <Eb Martin MD - Last Filed: 02/12/24 22:06>
[2024-02-12 16:29] LABS: Basophils Percent Auto 0.5 % (0.2-1.2); Eosinophils Percent Auto 0.1 % (0-4.4); Hemoglobin 16.2 g/dL (14.0-18.0); Immature Granulocyte Absolute 0.03 K/mm3 (0.00-0.031); Immature Granulocyte Percent A 0.4 % (0-0.5); Lymphocytes Absolute Auto 1.47 K/mm3 (0.9-3.2); Lymphocytes Percent Auto 19.1 % (18.3-44.2); Mean Corpuscular HGB Conc 34.5 g/dl (32-36); Mean Corpuscular Hemoglobin 29.1 pg (26-34); Mean Corpuscular Volume 84.4 fl (80-100); Mean Platelet Volume 9.8 fl (7.4-10.4); Monocytes Absolute Auto 0.6 K/mm3 (0.1-0.6); Monocytes Percent Auto 7.2 % (2.6-8.5); Neutrophils Absolute Auto 5.6 K/mm3 (1.3-6.7); Neutrophils Percent Auto 72.7 % (45.5-73.1); Platelet Count Result 170 k/mm3 (150-375); Red Blood Count 5.57 M/mm3 (4.6-6.20); Red Cell Distribution Width 12.4 % (11.5-14.5); White Blood Count 7.7 K/mm3 (4.5-10.0)
[2024-02-12 16:42] LABS: Alanine Aminotransferase 46 U/L (6-50); Albumin Level 4.5 g/dL (3.5-5.1); Alkaline Phosphatase 103 U/L (38-126); Anion Gap 9 mmol/L (4-12); Aspartate Amino Transferase 47 U/L (17-59); Bilirubin,Total 0.7 mg/dL (0.2-1.3); Blood Urea Nitrogen 14 mg/dL (9-20); Calcium 9.2 mg/dL (8.4-10.2); Carbon Dioxide 24 mmol/L (22-30); Chloride 107 mmol/L (98-107); Estimated CRCL calculation 366 ml/min; Estimated Glomerular Filt Rate > 60; Glucose 98 mg/dL (65-110); Potassium 3.6 mmol/L (3.4-5.0); Sodium 140 mmol/L (137-145)
[2024-02-12 18:20] LABS: Add Urine Microscopic? NO; Appearance Urine Clear (Clear); Bilirubin Urine Negative (Negative); Blood Urine Negative (Negative); Color Urine Yellow (Yellow); Glucose Urine UA Negative (Negative); Ketones Urine Negative (Negative); Leukocyte Esterase Ur Negative LEU/UL (Negative); Nitrate Urine Negative (Negative); Protein Urine Negative (Negative); Specific Grav Ur 1.014 (1.001-1.035); Urobilinogen Urine 0.2 mg/dL (<2.0)
[2024-02-12 19:52] VITALS: BP 128/77; PULSE 86; RESP 18; TEMP 36; O2SAT 97
[2024-02-12 19:55] LABS: Glucose Point of Care 94 mg/dl (65-105)
[2024-02-12 20:56] VITALS: PULSE 92
[2024-02-12 20:57] VITALS: BP 135/94; PULSE 91; RESP 13; O2SAT 99
[2024-02-12 22:09] VITALS: BP 123/86; PULSE 103; RESP 18; O2SAT 99
[2024-02-12 22:37] VITALS: BP 123/86; PULSE 103; RESP 18; O2SAT 99
--- OUTSIDE RECORDS SUMMARY | 2024-02-19 02:29 | XMS_ITS | Continuity of Care Document ---
Author Organization [facility] Address [address] [place] [address] Phone Care Team Providers Care Driver Manager Name Role Phone Sanchez OD, Alexandre Unavailable Unavailable Advance Directives Directive Yes / No Effective Date File Name No Information Encounters Encounter Description Practice Location Reason(s) For Visit Diagnoses Date Provider Providers Copied on Encounter [facility], [address], [place], [place], [id number], [place] tel:[phone] [facility] No Information Apr-2 8-200 5 Sanchez OD Alexandre. [address] , [address], [place], [address], [place]. tel:[phone] Family History Family Member Type Diagnosis Age At Onset No Information Payers Payer name Insurance type Covered constitution party ID Authoriza tion(s) Medicaid [facility] [id number] Social History Type Description Quantity Date Captured Comments Sex Male Smoking Status No Information Chief Complaint And Reason For Visit No Information Reason For Referral Reason For Referral No Information History Of Present Illness Encounter Date Complaint History Of Prese nt Illness No Information Functional Status Date Functional Assessmen t No Information Instructions Date Instruction Additional Infor mation No Information Assessments Type Assessment Date No Information Patient Care Teams Name Effective Dates (start - stop) Status Members No Information
--- OUTSIDE RECORDS SUMMARY | 2024-02-19 02:29 | XMS_ITS | Encounter Summary ---
Author Organization [facility] Address [address] [place] [address] Care Team Providers Care Rn Circulating Name Role Phone Unavailable Primary Care Provider Unavailabl e Encounter Details Date Type Department Care Team (Late st Contact Info) Description 11/20/2020 Lab Requisition [facility] Community Testing [facility] [address] [place] [address] Robert Mukherjee MD [address] [place] [address] [place] [address] Social History Tobacco Use Types Packs/Day Years Used Date Smoking Tobacco: Never Assessed Sex and Gender Information Value Date Recorded Sex Assigned at Not on file Legal Sex Male 1:54 PM CDT Gender Identity Not on file Sexual Orientation Not on file documented as of this encounter Plan of Treatment Not on file documented as of this encounter Procedures Procedure Name Priority Date/Time Associated Diagnosis Comments SARS-COV-2 PCR [facility] ONLY Routine 11/20/2020 2:08 PM CDT documented in this encounter Visit Diagnoses Not on filedocumented in this encounter
--- OUTSIDE RECORDS SUMMARY | 2024-02-19 02:29 | XMS_ITS | Clinical Summary ---
Author Organization [facility] Address [address] [place] [address] Care Team Providers Care Thread Marker Name Role Phone Unavailable Primary Care Provider Unavailabl e Social History Tobacco Use Types Packs/Day Years Used Date Smoking Tobacco: Never Assessed Sex and Gender Information Value Date Recorded Sex Assigned at Not on file Legal Sex Male 1:54 PM CDT Gender Identity Not on file Sexual Orientation Not on file Plan of Treatment Health Maintenance Due Date Last Done Comments Hepatitis C Virus (HCV) Screening 1984 TdaP Immunization 1984 Hepatitis B Immunization (1 of 3 - 19+ 3-dose series) 06/15/2003 Influenza Immunization (#1) 2023 SARS-COV-2 Immunization ( - 2023- season) 2023 Respiratory Syncytial Virus (RSV) Immunization (Adult) (1 - 1-dose 75+ series) 06/15/2059 Meningococcal Immunization (ACWY) Aged Out No longer eligible based on patient's age to complete this topic Pneumococcal Immunization Combined Aged Out No longer eligible based on patient's age to complete this topic Rotavirus Immunization Aged Out No lo nger eligible based on patient's age to complete this topic
--- OUTSIDE RECORDS SUMMARY | 2024-02-19 02:29 | XMS_ITS | Encounter Summary ---
Author Organization [facility] Address [address] [place] [address] Care Team Providers Care Director Industrial Name Role Phone Unavailable Primary Care Provider Unavailabl e Encounter Details Date Type Department Care Team (Late st Contact Info) Description 11/20/2020 2:30 PM CDT Rapid Evaluation [facility] Community Testing [address] [address] Social History Tobacco Use Types Packs/Day Years Used Date Smoking Tobacco: Never Assessed Sex and Gender Information Value Date Recorded Sex Assigned at Not on file Legal Sex Male 1:54 PM CDT Gender Identity Not on file Sexual Orientation Not on file documented as of this encounter Plan of Treatment Not on file documented as of this encounter Visit Diagnoses Not on filedocumented in this encounter
--- OUTSIDE RECORDS SUMMARY | 2024-02-19 02:29 | XMS_ITS | Continuity of Care Document ---
Author Organization [facility] Address [address] [place] [address] [address] [place] [address] Phone Care Team Providers Care Heel Gouger Name Role Phone Muehl MPT CMPTBlaine Unavailable Unavailable Procedures Procedure Date PT Evaluation Moderate Complexity Therapeutic Activities Advance Directives Directive Yes / No Effective Date File Name No Information Encounters Encounter Description Practice Location Reason(s) For Visit Diagnoses Date Provider Providers Copied on Encounter [address] [address], [place], [place], [id number], tel:[phone] [place] No Information 3 Muehl Blaine. [address] [facility], [address], [place], [address], [place]. tel:[phone] Referring Provider: Lalo Laws , [address] [place] [address], [address]. tel:[phone] Family History Family Member Type Diagnosis Age At Onset No Information Payers Payer name Insurance type Covered constitution party ID Authormaishaa amy(s) [facility] Medicare Solutions CI [id number] Medicaid OON Write Off CI 00 Social History Type Description Quantity Date Captured Comments Alcohol Use Details Unknown Caffeine Use Details Unknown Tobacco Use Status Current non-smoker Smoking Status Never smoker Non-Smoking Tobacco Use Details : No Details Available : No Details Available Sex Male Vital Signs Date / Time: Height Weight BMI Pulse Rate Blood Pressure Temperature Respiratory Rate Body Surface Area Head Circumference Head Circ. Percentile Wt./[place]. Percentile BMI percentile Pulse Ox Inhaled Ox 11:46 AM 69.00 in 120.660 kg (266.00 lbs) 39.2 8 kg/m eter (2) 2.42 meter(2) Chief Complaint And Reason For Visit No Information Reason For Referral Reason For Referral No Information History Of Present Illness Encounter Date Complaint History Of Prese nt Illness No Information Functional Status Date Functional Assessmen t No Information Instructions Date Instruction Additional Infor cisco Prescribed activity/exercise edu cation Related to Overweight Dietary needs education Related to Overweight Assessments Type Assessment Date No Information Patient Care Teams Name Effective Dates (start - stop) Status Members No Information
--- OUTSIDE RECORDS SUMMARY | 2024-02-19 03:46 | XMS_ITS | Continuity of Care Document ---
Author Organization [facility] Address [address] [place] [address] [address] [place] [address] Phone Care Team Providers Care Government Service Executive Name Role Phone Muehl MPT CMPTBlaine Unavailable Unavailable Procedures Procedure Date PT Evaluation Moderate Complexity Therapeutic Activities Advance Directives Directive Yes / No Effective Date File Name No Information Encounters Encounter Description Practice Location Reason(s) For Visit Diagnoses Date Provider Providers Copied on Encounter [address] [address], [place], [place], [id number], tel:[phone] [place] No Information 3 Muehl Blaine. [address] [facility], [address], [place], [address], [place]. [phone] Referring Provider: Lalo Laws , [address] [place] [address], [address]. tel:[phone] Family History Family Member Type Diagnosis Age At Onset No Information Payers Payer name Insurance type Covered republican ID Authormaishaa amy(s) [facility] Medicare Solutions [place] [id number] Medicaid OON Write Off CI 00 Social [...]
--- OUTSIDE RECORDS SUMMARY | 2024-02-19 03:46 | XMS_ITS | Encounter Summary ---
Author Organization [facility] Address [address] [place] [address] Care Team Providers Care Film Flat Inspector Name Role Phone Unavailable Primary Care Provider Unavailabl e Encounter Details Date Type Department Care Team (Late st Contact Info) Description 11/20/2020 Lab Requisition [facility] Community Testing [facility] [address] [place] [address] Robert Mukherjee MD [address] [place] [address] [place] [address] Social History Tobacco Use Types Packs/Day Years [...]
--- OUTSIDE RECORDS SUMMARY | 2024-02-19 03:46 | XMS_ITS | Encounter Summary ---
Author Organization [facility] Address [address] [place] [address] Care Team Providers Care Back Tender Name Role Phone Unavailable Primary Care Provider Unavailabl e Encounter Details Date Type Department Care Team (Late st Contact Info) Description 11/20/2020 2:30 PM CDT Rapid Evaluation [facility] Community Testing [address] [address] Social History Tobacco Use Types Packs/Day Years [...]
--- OUTSIDE RECORDS SUMMARY | 2024-02-19 03:46 | XMS_ITS | Clinical Summary ---
Author Organization [facility] Address [address] [place] [address] Care Team Providers Care Greek Professor Name Role Phone Unavailable Primary Care Provider [...]
--- OUTSIDE RECORDS SUMMARY | 2024-02-19 03:46 | XMS_ITS | Continuity of Care Document ---
Author Organization [facility] Address [address] [place] [address] Phone Care Team Providers Care Lumber Piler Operator Name Role Phone Sanchez OD, Alexandre Unavailable Unavailable Advance Directives Directive Yes / No Effective Date File Name No Information Encounters Encounter Description Practice Location Reason(s) For Visit Diagnoses Date Provider Providers Copied on Encounter [facility], [address], [place], [place], [id number], [place] tel:[phone] [facility] No Information Apr-2 8-200 5 Sanchez OD Alexandre. [address] , [address], [place], [address], [place]. tel:[phone] Family History Family Member Type Diagnosis Age At Onset No Information Payers Payer name Insurance type Covered libertarian ID Authoriza tion(s) Medicaid [employer] [id number] Social History Type Description Quantity Date Captured [...]
== END 2024-02-12 22:40 | disposition home or self-care (01) ==
PROVIDERS: Physician Assistant; Emergency Provider Emergency Medicine
DX: R53.1 Weakness (principal); G71.09 Other specified muscular dystrophies; I43 Cardiomyopathy in diseases classified elsewhere; G40.909 Epilepsy, unspecified, not intractable, without status epilepticus; G35 Multiple sclerosis; I10 Essential (primary) hypertension; E66.9 Obesity, unspecified; Z68.36 Body mass index [BMI] 36.0-36.9, adult; F70 Mild intellectual disabilities; Z95.0 Presence of cardiac pacemaker
CPT/HCPCS: 36415; 71046; 80053; 81003; 82948; 83735; 85025; 93005; 99284

== ENCOUNTER 2024-10-29 13:50 | Outpatient (CLI) | payer MEDICARE, MEDICAID, SELFPAY ==
--- NOTE | ~2024-10-29 | CT_ITS ---
EXAMINATION: CT brain wo con COMPARISON: None HISTORY: Epilepsy, headaches TECHNIQUE: Axial images were obtained through the brain without IV contrast. CT scan performed using dose optimization techniques including the following automated exposure control; adjustment of mA and/or kV; use of iterative reconstruction technique. Automatic exposure control was used to reduce radiation dose. Permanent radiation dose record is archived to PACS. FINDINGS: No acute infarct or parenchymal hemorrhage. No abnormal mass or mass effect. No midline shift. No extra-axial fluid collections. No hydrocephalus. . Mastoid air cells unremarkable. Sinuses and orbits unremarkable. No acute fracture. No significant facial or scalp soft tissue swelling evident. No radiopaque foreign body is seen. Impression: 1.No acute intracranial abnormality. Reviewed, dictated and finalized at location A. Impression: 1.No acute intracranial abnormality.
== END 2024-10-29 13:51 | disposition home or self-care (01) ==
LOC: MICIMG 13:51
PROVIDERS: PCP Psychiatry & Neurology Neurology; Visit Provider Psychiatry & Neurology Neurology
DX: G40.909 Epilepsy, unspecified, not intractable, without status epilepticus (principal); R51.9 Headache, unspecified; G89.29 Other chronic pain; F70 Mild intellectual disabilities
CPT/HCPCS: 70450